=== PATIENT | male | born 1960 | race Caucasian/White ===

== ENCOUNTER 2017-01-02 23:03 | Emergency (ER) | payer MEDICAID ==
[~2017-01-02] VITALS: Ht 182.9 cm; Wt 115.0 kg
[~2017-01-02 23:03] MED LIST: SODIUM BICARBONATE [ADULT] 8.4% 50 MEQ/50 ML SYRINGE IVP ONE
[2017-01-02 23:10] VITALS: BP 0/0
== END 2017-01-03 00:59 | disposition expired ==
LOC: EMS 23:06
DX: I46.9 Cardiac arrest, cause unspecified (principal)
CPT/HCPCS: 82962; 92950; 99285; J3490